=== PATIENT | female | born 1985 | race Caucasian/White ===

== ENCOUNTER 2016-06-01 15:42 | Outpatient (CLI) | payer OTHER ==
[~2016-06-01] VITALS: Ht 167.6 cm; Wt 74.2 kg
[~2016-06-01 15:42] MED LIST: TYL500 PO
[2016-06-01] MEDS ORDERED: CALC600T5 PO (15:45)
[2016-06-01] MEDS ORDERED: PREN1TAB17 PO (15:45)
[2016-06-01 15:46] VITALS: BP 112/61; RESP 15; Ht 167.6 cm; Wt 74.2 kg
--- NOTE | 2016-06-01 16:48 | RADRPT ---
PROCEDURE: OB ultrasound for biophysical profile CLINICAL INDICATION: Pain. Biophysical profile. . TECHNIQUE: Multiple sonographic images of the pelvis were obtained. Transabdominal view of the gr avid uterus are available for review. The images were reviewed on a PACS workstation. COMPARISON: None FINDINGS: breathing movement = 2/2 tone = 2/2 motion = 2/2 SANTIAGO = 2/2 Single intrauterine gestation is identified in cephalic position. heart rate is 132 bpm. Plac enta is anterior without evidence for abruption or previa. SANTIAGO measures 17.9 cm, within normal limi ts. IMPRESSION: 1. Single live intrauterine gestation. 2. Biophysical profile = 8/8. 3. SANTIAGO = 17.9 cm. RPTAT: HH .Gonzalez Mendez MD, Date Time Electronically viewed and signed by .Gonzalez Mendez MD, on 06/01/2016 16:48 .R/
[2016-06-01 17:00] LABS: BASOPHILS % 0.4 % (0.0-2.0); CONDITION 1; EOSINOPHILS # 0.2 10^3/ul (0.0-0.5); EOSINOPHILS % 2.9 % (0.0-7.0); HEMATOCRIT 30.7 % (37.0-47.0); HEMOGLOBIN 10.5 g/dl (12.0-16.0); LYMPHOCYTES # 1.7 10^3/ul (0.8-2.9); LYMPHOCYTES % 22.2 % (15.0-51.0); MEAN CORPUSCULAR HEMOGLOBIN 32.3 pg (29.0-33.0); MEAN CORPUSCULAR HGB CONC 34.1 g/dl (32.0-37.0); MEAN CORPUSCULAR VOLUME 94.6 fl (82.0-101.0); MEAN PLATELET VOLUME 11.2 fl (7.4-10.4); MONOCYTE # 0.4 10^3/ul (0.3-0.9); MONOCYTES % 5.3 % (0.0-11.0); NEUTROPHIL # 5.4 10^3/ul (1.6-7.5); NEUTROPHILS % 69.2 % (39.0-77.0); PLATELET COUNT 109 10^3/UL (140-440); RED BLOOD COUNT 3.25 10^6/ul (4.20-5.40); RED CELL DISTRIBUTION WIDTH 13.7 % (11.5-14.5); UNCORRECTED WBC 7.8 10^3/ul (4.8-10.8); WHITE BLOOD COUNT 7.8 10^3/ul (4.8-10.8)
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
== END 2016-06-01 19:55 | disposition home or self-care (01) ==
LOC: OBT 15:42 → L-D 15:42 → OBT 19:55
PROVIDERS: ATTEND Obstetrics & Gynecology
DX: O26.893 Other specified pregnancy related conditions, third trimester (principal); R10.30 Lower abdominal pain, unspecified; M54.9 Dorsalgia, unspecified; Z3A.34 34 weeks gestation of pregnancy
CPT/HCPCS: 36415; 76818; 85025; 85460; Z7500; G0463

== ENCOUNTER 2016-07-02 21:22 | Inpatient (IN) | payer OTHER ==
[~2016-07-02] VITALS: Ht 167.6 cm; Wt 77.9 kg
[~2016-07-02 21:22] MED LIST changes: +CALC600T5 PO; +PREN1TAB17 PO
[2016-07-02 21:42] VITALS: Ht 167.6 cm; Wt 77.9 kg
[2016-07-02 21:43] VITALS: BP 121/70; PULSE 65; RESP 18
--- NOTE | 2016-07-02 22:36 | RADRPT ---
PROCEDURE: OB ultrasound for biophysical profile CLINICAL INDICATION: Biophysical profile. . TECHNIQUE: Multiple sonographic images of the pelvis were obtained. Transabdominal view of the gr avid uterus are available for review. The images were reviewed on a PACS workstation. COMPARISON: 06/01/2016 FINDINGS: Single intrauterine gestation. Presentation: Cephalic. Partially visualized placenta: Anterior. breathing movement = 2/2 tone = 2/2 motion = 2/2 SANTIAGO = 2/2 SANTIAGO = 18.0 cm heart rate: 126 beats per minute IMPRESSION: Single intrauterine gestation. Biophysical profile 12/05 RPTAT: AADD .Panchito Gallo MD, MD Date Time Electronically viewed and signed by .Panchito Gallo MD, on 07/02/2016 22:36 .B/
[2016-07-03] MEDS: LACTATED RINGER'S 1,000 ML IV SCH ×5 (00:55→07:32)
[2016-07-03 00:57] LABS: ADD SCAN DIFF NO
[2016-07-03] MEDS ORDERED: METHYLERGONOVINE 0.2 MG INJ IM PRN ×2 (01:00→11:00)
[2016-07-03] MEDS ORDERED: AMPICILLIN 2 GM/NS (PMX) 100 ML IV ONE (01:00)
[2016-07-03] MEDS ORDERED: IBUPROFEN 600 MG TAB PO PRN (01:00)
[2016-07-03] MEDS ORDERED: MISOPROSTOL 200 MCG TAB PR PRN ×2 (01:00→11:00)
[2016-07-03] MEDS ORDERED: CARBOPROST 250 MCG INJ IM PRN ×2 (01:00→11:00)
[2016-07-03] MEDS ORDERED: OXYTOCIN 30 UNITS/LR 500 ML IV PRN ×2 (01:00→11:00)
[2016-07-03] MEDS ORDERED: ACETAMINOPHEN/CODEINE #3 TAB PO PRN (01:00)
[2016-07-03] MEDS ORDERED: LIDOCAINE 1% (MPF) 30 ML INJ INJ PRN (01:00)
[2016-07-03] MEDS ORDERED: BUTORPHANOL 2 MG INJ IV PRN ×2 (01:00)
[2016-07-03] MEDS ORDERED: OXYTOCIN 30 UNITS/LR 500 ML IV SCH ×2 (01:00)
[2016-07-03 01:02] LABS: ABNORMAL IP MESSAGE 1; BASOPHILS % 0.3 % (0.0-2.0); EOSINOPHILS # 0.1 10^3/ul (0.0-0.5); EOSINOPHILS % 1.8 % (0.0-7.0); HEMATOCRIT 34.6 % (37.0-47.0); HEMOGLOBIN 11.9 g/dl (12.0-16.0); LYMPHOCYTES # 1.6 10^3/ul (0.8-2.9); LYMPHOCYTES % 21.7 % (15.0-51.0); MEAN CORPUSCULAR HEMOGLOBIN 32.3 pg (29.0-33.0); MEAN CORPUSCULAR HGB CONC 34.4 g/dl (32.0-37.0); MEAN PLATELET VOLUME 13.6 fl (7.4-10.4); MONOCYTE # 0.5 10^3/ul (0.3-0.9); MONOCYTES % 6.4 % (0.0-11.0); NEUTROPHIL # 5.1 10^3/ul (1.6-7.5); NEUTROPHILS % 69.3 % (39.0-77.0); PLATELET COUNT 80 10^3/UL (140-415); RED BLOOD COUNT 3.68 10^6/ul (4.20-5.40); RED CELL DISTRIBUTION WIDTH 14.7 % (11.5-14.5); WHITE BLOOD COUNT 7.3 10^3/ul (4.8-10.8)
[2016-07-03 01:03] LABS: INR 0.96; PROTIME 12.8 Sec (12.2-14.2)
[2016-07-03 01:28] LABS: ALBUMIN 3.1 g/dl (3.3-4.9); CHLORIDE 108 mmol/L (97-110); SODIUM 140 mmol/L (135-144)
[2016-07-03 01:30] LABS: CREATININE 0.63 mg/dl (0.44-1.00)
[2016-07-03 01:31] LABS: ALANINE AMINOTRANSFERASE 21 IU/L (13-69); ALKALINE PHOSPHATASE 174 IU/L (42-121); ANION GAP 15 (8-16); ASPARTATE AMINO TRANSFERASE 23 IU/L (15-46); BILIRUBIN,INDIRECT 0.1 mg/dl (0-1.1); BILIRUBIN,TOTAL 0.1 mg/dl (0.2-1.3); BLOOD UREA NITROGEN 11 mg/dl (7-20); CALCIUM 8.8 mg/dl (8.4-10.2); CARBON DIOXIDE 21 mmol/L (21-31); GLUCOSE 78 mg/dl (70-220); TOTAL PROTEIN 6.2 g/dl (6.1-8.1)
[2016-07-03] MEDS ORDERED: FENTAnyl 2MCG/ML-ROPIV 0.2% 100 ML ONE (01:37)
[2016-07-03] MEDS ORDERED: FENTAnyl 2MCG/ML-ROPIV 0.2% 100 ML BAG EPI SCH (02:00)
[2016-07-03] MEDS ORDERED: NALOXONE (0.4 MG/ML) INJ IV PRN (02:00)
[2016-07-03] MEDS: AMPICILLIN 1 GM/NS (PMX) 50 ML IV SCH ×2 (06:18→09:00)
[2016-07-03] MEDS ORDERED: LACTATED RINGER'S 1,000 ML IV* SCH (10:35)
--- NOTE | 2016-07-03 10:42 | LDN ---
Date/Time of Note Date/Time of Note DATE: 07/03/16 TIME: 10:40 Delivery Summary Placenta Delivered: Spontaneously Meconium: none Perineum intact?: Yes Perineal laceration repair: 1st degree vaginal laceration repair with 2-0 chromic Anesthesia type: Epidural Sponge & Needle done & correct: Yes All needle counts correct: Yes Any foreign bodies felt in the: No Problems: Infant Delivery Information Sex Infant Sex: male Apgars 1 Minute: 8 5 Minute: 9 Suctioning Nose & mouth suctioned at clarita: No Delee suction performed: No Umbilical Cord Umbilical cord with: 3 Vessels Cord presentations: no nuchal cord Cord Blood was obtained: Yes DERIK LOPEZ MD Jul 03, 2016 10:42
[2016-07-03] MEDS ORDERED: BENZOCAINE 20% 56 ML SPRAY TOP PRN (11:00)
[2016-07-03] MEDS ORDERED: WITCH HAZEL/GLYCERIN PAD PR PRN (11:00)
[2016-07-03] MEDS ORDERED: LANOLIN 7 GM TUBE TOP PRN (11:00)
[2016-07-03] MEDS ORDERED: ONDANSETRON 4 MG TAB PO PRN (11:00)
[2016-07-03] MEDS ORDERED: ONDANSETRON 4 MG INJ IV PRN (11:00)
[2016-07-03] MEDS ORDERED: SENNA/DOCUSATE NA (8.6MG/50MG) TAB PO PRN (11:00)
[2016-07-03] MEDS ORDERED: DIPHENHYDRAMINE 25 MG CAP PO PRN (11:00)
[2016-07-03] MEDS ORDERED: OXYCODONE/ASPIRIN (4.88/325) TAB PO PRN ×2 (11:00)
[2016-07-03] MEDS: OXYTOCIN 30 UNITS/LR 500 ML IV SCH ×2 (11:19→15:00)
[2016-07-03] MEDS: IBUPROFEN 600 MG TAB PO SCH ×2 (12:00→17:59)
[2016-07-03 12:35] VITALS: BP 125/68; PULSE 57; RESP 20
[2016-07-03 16:00] VITALS: BP 107/54; PULSE 67; RESP 18
[2016-07-03 19:50] VITALS: BP 117/61; PULSE 70; RESP 18
[2016-07-03] MEDS: SENNA/DOCUSATE NA (8.6MG/50MG) TAB PO SCH (20:49)
[2016-07-03] MEDS: MAGNESIUM HYDROXIDE 30ML CUP PO SCH (20:49)
[2016-07-03] MEDS ORDERED: LACTATED RINGER'S 1,000 ML IV PRN (23:50)
[2016-07-04] VITALS: BP 101/55; PULSE 68; RESP 18
[2016-07-04] MEDS: IBUPROFEN 600 MG TAB PO SCH ×4 (00:04→17:44)
[2016-07-04 04:40] VITALS: BP 98/58; PULSE 66; RESP 18
--- NOTE | 2016-07-04 07:12 | QN ---
Documentation Comment attending note PPD 1 patient seen and evaluated no complaints vs stable afebrile ab soft nt uterine fundus below umbillicus extremity no edema no calf tenderness a/ s/p vaginal delivery PPD 1 stable p/ f/u cbc DERIK LOPEZ MD Jul 04, 2016 07:12
[2016-07-04 07:35] VITALS: BP 121/71; PULSE 72; RESP 18
[2016-07-04 08:21] LABS: ADD SCAN DIFF NO
[2016-07-04 08:32] LABS: ABNORMAL IP MESSAGE 1; BASOPHILS % 0.3 % (0.0-2.0); EOSINOPHILS # 0.3 10^3/ul (0.0-0.5); EOSINOPHILS % 3.2 % (0.0-7.0); HEMATOCRIT 31.6 % (37.0-47.0); HEMOGLOBIN 10.4 g/dl (12.0-16.0); LYMPHOCYTES # 1.8 10^3/ul (0.8-2.9); LYMPHOCYTES % 20.8 % (15.0-51.0); MEAN CORPUSCULAR HEMOGLOBIN 32.3 pg (29.0-33.0); MEAN CORPUSCULAR HGB CONC 32.9 g/dl (32.0-37.0); MEAN CORPUSCULAR VOLUME 98.1 fl (82.0-101.0); MEAN PLATELET VOLUME 13.5 fl (7.4-10.4); MONOCYTE # 0.5 10^3/ul (0.3-0.9); MONOCYTES % 5.3 % (0.0-11.0); NEUTROPHILS % 69.8 % (39.0-77.0); PLATELET COUNT 59 10^3/UL (140-415); RED BLOOD COUNT 3.22 10^6/ul (4.20-5.40); RED CELL DISTRIBUTION WIDTH 15.2 % (11.5-14.5); WHITE BLOOD COUNT 8.7 10^3/ul (4.8-10.8)
[2016-07-04] MEDS: MAGNESIUM HYDROXIDE 30ML CUP PO SCH ×2 (09:16→20:59)
[2016-07-04] MEDS: SENNA/DOCUSATE NA (8.6MG/50MG) TAB PO SCH ×2 (09:16→20:59)
[2016-07-04 15:50] VITALS: BP 122/72; PULSE 71; RESP 20
[2016-07-04 19:45] VITALS: BP 116/75; PULSE 66; RESP 18
[2016-07-05] MEDS: IBUPROFEN 600 MG TAB PO SCH ×3 (00:38→12:00)
[2016-07-05 03:45] VITALS: BP 102/61; PULSE 76; RESP 18
[2016-07-05 08:00] VITALS: BP 111/72; PULSE 74
[2016-07-05 08:05] LABS: ADD SCAN DIFF NO
[2016-07-05 08:33] LABS: ABNORMAL IP MESSAGE 1; BASOPHILS % 0.5 % (0.0-2.0); EOSINOPHILS # 0.4 10^3/ul (0.0-0.5); EOSINOPHILS % 5.4 % (0.0-7.0); HEMATOCRIT 29.1 % (37.0-47.0); HEMOGLOBIN 9.7 g/dl (12.0-16.0); LYMPHOCYTES # 1.6 10^3/ul (0.8-2.9); LYMPHOCYTES % 23.9 % (15.0-51.0); MEAN CORPUSCULAR HEMOGLOBIN 32.6 pg (29.0-33.0); MEAN CORPUSCULAR HGB CONC 33.3 g/dl (32.0-37.0); MEAN CORPUSCULAR VOLUME 97.7 fl (82.0-101.0); MEAN PLATELET VOLUME 13.4 fl (7.4-10.4); MONOCYTE # 0.3 10^3/ul (0.3-0.9); MONOCYTES % 5.1 % (0.0-11.0); NEUTROPHIL # 4.3 10^3/ul (1.6-7.5); NEUTROPHILS % 64.8 % (39.0-77.0); PLATELET COUNT 71 10^3/UL (140-415); RED BLOOD COUNT 2.98 10^6/ul (4.20-5.40); RED CELL DISTRIBUTION WIDTH 15.5 % (11.5-14.5); WHITE BLOOD COUNT 6.6 10^3/ul (4.8-10.8)
[2016-07-05] MEDS: SENNA/DOCUSATE NA (8.6MG/50MG) TAB PO SCH (09:00)
[2016-07-05] MEDS: MAGNESIUM HYDROXIDE 30ML CUP PO SCH (09:00)
--- NOTE | 2016-07-05 12:47 | PD.PPDC ---
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
--- NOTE | 2016-07-05 13:04 | PREOPHP ---
DATE OF ADMISSION: 07/03/2016 HISTORY OF PRESENT ILLNESS: Ms. Jarred Oates is a 31-year-old 1, para 0, intrauterine preg sandor at term, presented to triage complaining of regular contractions. She was diagnosed to be in labor. Her care took place with [facility] PAST MEDICAL HISTORY: None. MEDICATIONS: vitamins. PAST SURGICAL HISTORY: None. OBSTETRIC HISTORY: Primigravid. GYNECOLOGIC HISTORY: 11 years, regular 3 to 4 days. Denies any sexually transmitted diseases. Sex ually active with 1 partner. SOCIAL HISTORY: Denies any smoking, drugs or alcohol. FAMILY HISTORY: None. PHYSICAL EXAMINATION: HEENT: Within normal. LUNGS: CTA bilateral. CARDIOVASCULAR: S1, S2, regular rhythm. ABDOMEN: Gravid, nontender. EXTREMITIES: Negative edema. No calf tenderness. PELVIC: Vaginal exam, ____ -2. heart tracing category 1. Tocometer regular contractions. ASSESSMENT: Intrauterine at term in labor. PLAN: As expected vaginal delivery. Dictated By: SIMONE CLARKE/ALAN Conf#: [id number] DID#: [id number]
--- NOTE | 2016-07-05 13:33 | DS ---
DATE OF ADMISSION: 07/03/2016 DATE OF DISCHARGE: 07/05/2016 PRIMARY DIAGNOSES: 1. Intrauterine at term in labor. 2. Suspected gestational induced thrombocytopenia. PROCEDURE: Normal spontaneous vaginal delivery. CONDITION ON DISCHARGE: Stable. ACTIVITY: None per vagina, no heavy lifting x6 weeks. DIET: Regular. MEDICATIONS ON DISCHARGE: 1. Iron. 2. Colace. 3. Tylenol. DISCHARGE SUMMARY: Ms. Jarred Oates is a 31-year-old 1, para 1, status post normal spontan eous vaginal delivery on 07/03/2016. She had a viable male, Apgars 8 and 9 respectively at 1 and 5 minutes. She had an uneventful day 1 and 2. She is ambulating, tolerating diet, positiv e flatulence, positive bowel movement. She has been observed to have low platelets of about 70,000; however, stable. Most likely -induced thrombocytopenia; however, advised patient to mehdi todd with primary care physician for further workup. Dictated By: DERIK CLARKE/ALAN Conf#: [id number] DID#: [id number]
== END 2016-07-05 15:30 | disposition home or self-care (01) | DRG 775 ==
LOC: OBT 21:22 → L-D 21:23 → OBT 07-03 00:10 → L-D 07-03 00:10 → PP1 07-03 12:21
PROVIDERS: ADMIT Obstetrics & Gynecology; ATTEND Obstetrics & Gynecology
PROC: 10E0XZZ Delivery of Products of Conception, External Approach (ICD-10-PCS; principal; 2016-07-03)
PROC: 0HQ9XZZ Repair Perineum Skin, External Approach (ICD-10-PCS; 2016-07-03)
DX: O99.12 Other diseases of the blood and blood-forming organs and certain disorders involving the immune mechanism complicating childbirth (principal); D69.6 Thrombocytopenia, unspecified; O70.0 First degree perineal laceration during delivery; Z3A.38 38 weeks gestation of pregnancy; Z37.0 Single live birth
CPT/HCPCS: 36415; 62319; 76818; 80053; 85025; 85610; 85730; 86592; 86703; 86762; 86900; 86901; 87340; 96360; 96361; G0463; J0290; J2590; J3010; J7120